=== PATIENT | female | born 1970 | race Two or more races ===

== ENCOUNTER 2019-02-06 06:58 | Day surgery (SDC) | payer OTHER ==
[2019-02-01 14:46] VITALS: BMI 27.8
--- NOTE | 2019-02-06 06:30 | HP ---
History & Physical Update - History History: No Change - Physical Physical: No Change - Assessment Assessment: No Change - Plan Plan: No Change (No change in HP)
[~2019-02-06 06:58] MED LIST: CEFAZOLIN 2 GM/D5W 2 GM/50 ML ML IVPB ONE
[2019-02-06] MEDS ORDERED: ceFAZolin SODIUM 1 GM VIAL ONE (07:02)
[2019-02-06] MEDS: PHENAZOPYRIDINE HCL 100 MG TABLET (FP) PO ONE ×2 (07:05→19:25)
[2019-02-06] MEDS ORDERED: BUPIVACAINE HCL/PF 0.5% (5 MG/ML) 30 ML VIAL IJ ONE ×4 (07:28→10:45)
[2019-02-06] MEDS ORDERED: SUCCINYLCHOLINE CHLORIDE 200 MG/10 ML SYRINGE ONE (07:44)
[2019-02-06] MEDS ORDERED: ROCURONIUM BROMIDE 50 MG/5 ML SYRINGE ONE (07:44)
[2019-02-06] MEDS ORDERED: MIDAZOLAM HCL 2 MG/2 ML SINGLE DOSE VIAL ONE (07:44)
[2019-02-06] MEDS ORDERED: PROPOFOL 20 ML ONE (07:44)
[2019-02-06] MEDS ORDERED: LIDOCAINE HCL/PF 2% SDV 5ML VIAL ONE (07:45)
[2019-02-06] MEDS ORDERED: HEPARIN NA (PORCINE) 5,000 UNITS/ML 1ML VIAL SQ ONE ×2 (07:48→08:00)
[2019-02-06] MEDS ORDERED: ceFAZolin 2 GRAM PREMIX BAG IVPB ONE (08:20)
[2019-02-06] MEDS ORDERED: KETOROLAC TROMETHAMINE 30 MG/1 ML VIAL ONE (08:58)
[2019-02-06] MEDS ORDERED: DEXAMETHASONE SOD PHOSPHATE 4 MG/1 ML VIAL ONE (08:58)
[2019-02-06] MEDS ORDERED: GLYCOPYRROLATE 0.2 MG/1 ML VIAL ONE (08:58)
[2019-02-06] MEDS ORDERED: NEOSTIGMINE METHYLSULFATE 0.5 MG/ML - 10 ML MDV ONE (08:59)
[2019-02-06] MEDS ORDERED: DESFLURANE GAS 240 ML BOTTLE IH ONE (09:35)
[2019-02-06] MEDS ORDERED: HYDROmorphone HCl 2 MG/ML VIAL ONE (10:14)
[2019-02-06] MEDS ORDERED: BACITRACIN 15 GM TUBE TOPICAL OINTMENT ONE (10:30)
[2019-02-06] MEDS ORDERED: SIMETHICONE 80 MG TAB.CHEW (FP) PO PRN (11:19)
[2019-02-06] MEDS ORDERED: BISACODYL 5 MG TABLET.DR (FP) PO PRN (11:19)
[2019-02-06] MEDS ORDERED: DOCUSATE SODIUM 100 MG CAPSULE (FP) PO PRN (11:19)
[2019-02-06] MEDS ORDERED: oxyCODONE HCL 5 MG TABLET PO PRN ×2 (11:19)
[2019-02-06] MEDS ORDERED: ONDANSETRON 4 MG/2 ML VIAL IVPUSH PRN (11:19)
[2019-02-06] MEDS ORDERED: ACETAMINOPHEN 325 MG TABLET (FP) PO SCH (11:30)
--- NOTE | 2019-02-06 11:34 | OP ---
<Hazel Cm - Last Filed: 02/06/19 11:30> Operative Note - Note: Operative Date: 02/06/19 Pre-Operative Diagnosis: leiomyomatous uterus Operation: robotic assisted hysterectomy/bilateral salpingectomy Surgeon: France Rosales Inspector Scales: Hazel Cm Anesthesiologist/MARBLE CLEANER: Rafi Serrano Anesthesia: General Estimated Blood Loss (mls): 25 Drains, Volume Out (mls): 800 (contreras) Fluid Volume Replaced (mls): 1,500 Operative Report Dictated: Yes <France Rosales - Last Filed: 02/06/19 12:34> Operative Note - Note: Operation: robotic total Hysterectomy/bilateral salpingectomy
--- NOTE | 2019-02-06 11:35 | SURG ---
Surgery Hand Pleater Note Hand Pleater: Hazel Cm PA-C Date of Service: 02/06/19 Diagnosis: leiomyomatous uterus Procedure: robotic assisted hysterectomy/bilateral salpingectomy I was present for the entirety of the operative procedure. For further detail, please refer to operative report. Visit type - Case Type Case Type: Scheduled - Emergency Emergency Visit: No - New patient This patient is new to me today: Yes Date on this admission: 02/06/19
[2019-02-06] MEDS: ACETAMINOPHEN 1000 MG/100 ML VIAL (NON FORMULARY) IVPB ONE ×2 (11:40→19:25)
[2019-02-06] MEDS: LACTATED RINGERS SOLUTION 1,000 ML/1,000 ML INFUS.BAG IV SCH ×2 (12:00→22:23)
[2019-02-06] MEDS: IBUPROFEN 800 MG/8 ML IJ IVPB PRN ×2 (14:49→22:57)
--- NOTE | 2019-02-06 15:50 | OP ---
DATE OF OPERATION: 02/06/2019 PREOPERATIVE DIAGNOSIS: Leiomyomatous uterus, pelvic pain, adenomyosis, intramural myomas. OPERATION: Laparoscopic robotic total hysterectomy and bilateral salpingectomy. SURGEON: France Rosales MD LEAD FURNACE OPERATOR: LIZZETTE Nelson ESTIMATED BLOOD LOSS: 25 mL. ANESTHESIA: General. DESCRIPTION OF PROCEDURE: Patient was taken to the operating room, placed in dorsal lithotomy position, prepped and draped in the usual sterile fashion. A time-out was performed in accordance with hospital regulation. Speculum was placed in the vagina. Anterior lip of the cervix was grasped with a single-tooth tenaculum. Cervix was then dilated to accommodate the uterine manipulator. Cowart catheter was then inserted. Attention was then drawn to the umbilicus where an 8-mm umbilical incision was made. Veress needle was inserted into the cavity. Approximately 3-4 L of CO2 was insufflated in the cavity. Veress needle was then removed, and an 8-mm trocar was then inserted. Laparoscope and camera attached. Visualization revealed a leiomyomatous uterus, normal tubes and ovaries. Patient had a bilateral salpingectomy. Two trocars were placed on the left parallel to the umbilical incision on the left, 1 parallel to the umbilical incision approximately 10 cm apart and a 2nd one in the upper abdomen. A 5-mm incision was made, and AirSeal cannula was then inserted. Trocar was also inserted under direct visualization on the left. Two trocars were placed on the right side, both incisions parallel to each side about 10 cm apart under direct visualization after scalpel had been used to make an 8-mm skin incision. Trocars were inserted under direct visualization without injury to underlying viscera. The Da Sandee robot was then side docked to the patient's bedside, and trocars were then inserted onto the da Sandee robot. Endo Rhonda and tenaculum were placed on the right side as well as vessel sealer on the left. After placement of the instruments had been done, attention was then drawn to the console where control of the console was done. Tenaculum was then used to elevate the uterus to the right side. The fallopian tube was then bilaterally grasped, coagulated, and cut. Utero-ovarian ligament was identified, clamped, and cut. Round ligament was identified, clamped, and cut, and uterine artery was then identified, clamped, and cut. Cardinal ligaments were identified, clamped, and cut down to the level of the cervix. Vesicouterine reflection was then entered, and bladder was bluntly dissected out of the operative field. Ureter on the left side was identified and found to have peristalsis. Same procedure was repeated on the right side after uterus was then elevated to the left side. Utero-ovarian ligament was identified, clamped, and cut. Round ligament was identified, clamped, and cut. Cardinal ligament was identified, clamped, and cut. Uterine artery was identified, clamped, and cut. Bladder had been dissected out of the operative field. Endo Rhonda were then used to make an incision in the vagina. Uterine manipulator was identified. Cutting of the vagina was then done circumferentially, and the cervix was moved away from the vagina. Attention was then drawn to the vagina where uterine manipulator was removed, and the uterus and cervix were also removed. Tubes were bilaterally grabbed. The stump of the fallopian tube was bilaterally grasped, coagulated, and cut, and both tubes, both left and right, were submitted from the vagina. A 2-0 V-Lock suture was then introduced into the abdomen, and da Sandee robot was used to close the vaginal cuff in a continuous fashion. Hemostasis was achieved. Ureters were identified and found to have peristalsis both on the left and right side. Approximately 800 mL of urine with Pyridium was noted coming out of the Cowart. Hemostasis was achieved. The suture was then removed through the No. 1 trocar, and all trocars were then removed from the da Sandee robot. All trocars were removed from the abdomen. CO2 was removed from the patient's abdomen, and all incisions were closed using 4-0 Biosyn suture in subcuticular fashion. Wound was washed and dressed. Patient had tolerated the procedure well. Estimated blood loss 25 mL. Tami [id number]
[2019-02-06] MEDS: CEFAZOLIN 1 GM in DEXTROSE 5%-WATER - 50 ML IVPB SCH (16:30)
[2019-02-06] MEDS: ACETAMINOPHEN 325 MG TABLET (FP) PO SCH (18:47)
[2019-02-06 18:50] LABS: HEMATOCRIT 37.2 % (32.4-45.2); HEMOGLOBIN 12.1 GM/dL (10.7-15.3); MCH 27.2 pg (25.7-33.7); MCHC 32.6 g/dl (32.0-36.0); MEAN CELL VOLUME 83.6 fl (80-96); MEAN PLT VOLUME 7.7 fl (7.5-11.1); PLATELET COUNT 245 K/MM3 (134-434); RBC 4.45 M/mm3 (3.60-5.2); RDW 14.6 % (11.6-15.6); WHITE BLOOD COUNT 8.8 K/mm3 (4.0-10.0)
[2019-02-06 19:14] LABS: BLOOD UREA NITROGEN 9.3 mg/dL (7-18); CALCIUM 8.4 mg/dL (8.5-10.1); CREATININE 0.8 mg/dL (0.55-1.3); POTASSIUM 4.2 mmol/L (3.5-5.1)
[2019-02-07] MEDS ORDERED: CEFAZOLIN 1 GM/D5W 1 GM/50 ML BAG IVPB SCH (00:06)
[2019-02-07] MEDS: CEFAZOLIN 1 GM in DEXTROSE 5%-WATER - 50 ML IVPB SCH (00:08)
[2019-02-07] MEDS: ACETAMINOPHEN 325 MG TABLET (FP) PO SCH ×3 (00:11→12:38)
--- NOTE | 2019-02-07 08:14 | PN ---
Progress Note (short form) - Note Progress Note: POD#1 Pt without any complaints this am. No CP/SOB. No nausea or emsis with clears. No flatus. OOB and ambuating. Voided 700 ml this am. No vagnial bleeding. Vital Signs Period Temp Pulse Resp BP Sys/Porras Pulse Ox Last 24 Hr 16 F-98.5 F 74-97 11-81 101-113/53-80 100-100 BOLTON:1952 Voided 700ml GEN: A&0x3, NAD CV: RRR Lungs: CTA b/l ABD: soft, non-distended, inc tenderness. INC c/d/i with bandaids. LE: no calf tendnerss or swelling noted b/l CBC, BMP 02/06/19 18:00 02/06/19 18:00 A/p: 48 yo female s/p robotic assisted hysterectomy with b/l salpingectomy Doing well, advance diet this am to regular Lovenox this am for DVT ppx and resume eliquis tonight. cbc/chem this am If tolerates regular diet, plan for discharge to home today D/w Dr. Rosales
[2019-02-07] MEDS ORDERED: ENOXAPARIN NA (PORCINE) 40 MG/0.4 ML DISP.SYRIN SQ SCH ×2 (10:00)
[2019-02-07 10:30] LABS: HEMATOCRIT 32.5 % (32.4-45.2); HEMOGLOBIN 10.7 GM/dL (10.7-15.3); MCH 27.2 pg (25.7-33.7); MEAN CELL VOLUME 82.7 fl (80-96); MEAN PLT VOLUME 7.5 fl (7.5-11.1); PLATELET COUNT 219 K/MM3 (134-434); RBC 3.94 M/mm3 (3.60-5.2); RDW 14.7 % (11.6-15.6); WHITE BLOOD COUNT 5.8 K/mm3 (4.0-10.0)
[2019-02-07 10:54] LABS: CALCIUM 8.3 mg/dL (8.5-10.1); CREATININE 0.8 mg/dL (0.55-1.3); POTASSIUM 3.5 mmol/L (3.5-5.1)
[2019-02-07 12:09] VITALS: BP 98/75; PULSE 65; TEMP 98
--- NOTE | 2019-02-09 16:14 | PATH ---
Surgical Pathology Report Patient Name: STALIN [facility]USU [facility]. Rec. #: [id number] /Age/Gender: 1970 (Age: 48) / F Account: [id number] Location: AMBULATORY SURG Taken: 02/06/2019 Received: 02/06/2019 Reported: 02/09/2019 Physicians: France Rosales M.D. Specimen(s) Received A: RIGHT FALLOPIAN TUBE B: LEFT FALLOPIAN TUBE C: UTERUS AND CERVIX D: CYST Clinical History Pelvic pain Final Diagnosis A. RIGHT FALLOPIAN TUBE, SALPINGECTOMY: PORTION OF FALLOPIAN TUBE WITH NO SIGNIFICANT PATHOLOGIC CHANGE. B. LEFT FALLOPIAN TUBE, SALPINGECTOMY: PORTION OF FALLOPIAN TUBE WITH NO SIGNIFICANT PATHOLOGIC CHANGE. C. UTERUS AND CERVIX, HYSTERECTOMY: LEIOMYOMATA. ENDOMETRIAL POLYPS. ADENOMYOSIS. WEAKLY PROLIFERATIVE ENDOMETRIUM. CERVIX WITH CHRONIC CERVICITIS AND SQUAMOUS METAPLASIA. D. CYST, EXCISION: CYSTS LINED BY BENIGN TUBAL EPITHELIUM. Electronically Signed Dwayne Vicente M.D. Gross Description A. Received in formalin labeled "right fallopian tube," is a 1.8 cm in length fimbriated fallopian tube. The outer surface is garcia purple and smooth. Sectioning reveals an unremarkable lumen. Journeyman Glazier sections are submitted in 2 cassettes as follows: 1-fimbria; 2-cross sections of fallopian tube. B. Received in formalin labeled "left fallopian tube," is a 2.2 cm in length fimbriated fallopian tube. The outer surface is maravilla purple and smooth. Sectioning reveals an unremarkable lumen. Journeyman Glazier sections are submitted in 2 cassettes as follows: 1-fimbria; 2-cross sections of fallopian tube. C. Received in formalin labeled "uterus with cervix," is a 158 g uterus with an attached cervix and no attached adnexa. The specimen measures 9 cm from superior to inferior, 6.0 cm from anterior to posterior and 5.2 cm from left to right. The serosa is billingsley-maravilla and smooth. The attached cervix measures 3.2 cm in length and averages 2.7 cm in diameter. The ectocervix is billingsley-pink, smooth and glistening. The endocervix is unremarkable. The endometrial cavity measures 4.1 cm in length and 1.7 cm from cornu to cornu. The anterior endometrium displays multiple small possible polyps. The remaining endometrium is billingsley and averages 0.1 cm in thickness. The myometrium displays 2 intramural nodules measuring 1.8 and 3.7 cm in greatest dimension. The cut surface of the nodules is billingsley, firm to rubbery with whorled architecture. No areas of hemorrhage or necrosis are identified. The remaining myometrium is billingsley garcia and measures up to 4 cm in thickness. Journeyman Glazier sections are submitted in 11 cassettes as follows: 1-anterior cervix; 2-posterior cervix; 8-2-lyooupmm endomyometrium sequentially submitted from superior to inferior; 8-9-yhjsetwhj endomyometrium; 9-smaller intramural nodule; 83-37-icitvv intramural nodule. D. Received in formalin labeled "cyst," is a 0.7 x 0.4 x 0.2 cm billingsley-maravilla portion of soft tissue, possibly consistent with a cyst. The specimen is submitted in toto in one cassette. 02/08/201902/08/2019
== END 2019-02-07 13:00 | disposition home or self-care (01) ==
LOC: JASUSAT 06:58 → J3W 13:19 → JASUSAT 02-07 13:00
PROVIDERS: ATTEND Obstetrics & Gynecology
PROC: 8E0W4CZ Robotic Assisted Procedure of Trunk Region, Percutaneous Endoscopic Approach (ICD-10-PCS; 2019-02-06)
PROC: 0UT94ZZ Resection of Uterus, Percutaneous Endoscopic Approach (ICD-10-PCS; principal; 2019-02-06 08:00)
PROC: 0UB74ZZ Excision of Bilateral Fallopian Tubes, Percutaneous Endoscopic Approach (ICD-10-PCS; 2019-02-06 08:00)
DX: D25.9 Leiomyoma of uterus, unspecified (principal); N80.0 Endometriosis of uterus; D25.1 Intramural leiomyoma of uterus; R10.2 Pelvic and perineal pain
CPT/HCPCS: 58571; S2900; 36415; 80048; 84703; 85027; 86850; 86900; 86901; 94760; J0131; J1644